=== PATIENT | female | born 1965 | race African-American/Black ===

== ENCOUNTER 2021-01-09 08:50 | Emergency (ER) | payer OTHER ==
[2021-01-09 09:03] VITALS: BP 0/0
== END 2021-01-09 09:06 ==
LOC: EDBD 08:50 → ER 08:50
DX: I46.9 Cardiac arrest, cause unspecified (principal); E66.01 Morbid (severe) obesity due to excess calories; I11.0 Hypertensive heart disease with heart failure; I50.9 Heart failure, unspecified; J44.9 Chronic obstructive pulmonary disease, unspecified; E11.9 Type 2 diabetes mellitus without complications; Z68.44 Body mass index [BMI] 60.0-69.9, adult
CPT/HCPCS: 31500; 92950